=== PATIENT | male | born 1970 | race Caucasian/White ===

== ENCOUNTER 2018-08-10 17:01 | Emergency (ER) | payer OTHER ==
--- NOTE | 2018-08-10 17:08 | PDOC ---
History of Present Illness - General History Source: Patient Exam Limitations: No Limitations <[place] Fonseca - Last Filed: 08/10/18 17:51> <Yvan Haas - Last Filed: 08/10/18 18:21> - General Chief Complaint: Chest Pain Stated Complaint: CHEST PAIN Time Seen by Provider: 08/10/18 17:07 - History of Present Illness Initial Comments: 08/10/18 17:54 The patient is a 47 year old male, with a significant past medical history of right bundle branch (has not followed up with a corrosion control engineer in multiple years) , who presents to the emergency department with, chest discomfort. Patient notes 15 minutes prior to his arrival he experienced a sudden onset episode of shooting chest pain. Since that episode he has been experiencing chest tightness with associated shortness of breath, nausea, and numbness and tingling to his face and fingers, prompting his visit to the ER. While in the ER , the patient endorses feeling a similar episode of chest pain which was less severe in nature. He denies similar episodes in the past. He denies any recent fevers, chills, headache or dizziness. He denies any recent nausea, vomit, diarrhea or constipation. He denies any recent dysuria, frequency, urgency or hematuria. Allergies: NKDA Past surgical history: Meniscus tears. Social History: Nonsmoker. Denies EtOH use and recreational drug use. Familial History: Grandmother of [place] in her 60s. ([place] Fonseca) Past History <[place] Fonseca - Last Filed: 08/10/18 17:51> <Yvan Haas - Last Filed: 08/10/18 18:21> - Past Medical History Allergies/Adverse Reactions: Allergies Allergy/AdvReac Type Severity Reaction Status Date / Time No Known Allergies Allergy Verified 08/10/18 17:02 Home Medications: Ambulatory Orders NK [No Known Home Medication] 08/10/18 Review of Systems - Review of Systems Able to Perform ROS?: Yes All Other Systems: Reviewed and Negative <[place] Fonseca - Last Filed: 08/10/18 17:51> <Yvan Haas - Last Filed: 08/10/18 18:21> - Review of Systems Comments:: 08/10/18 17:55 CONSTITUTIONAL: Absent: fever, no chills, no fatigue EYES: Absent: visual changes ENT: Absent: ear pain, no sore throat CARDIOVASCULAR: Present: Chest pain/tightness, SOB RESPIRATORY: Absent: cough GI: Present: Nausea (resolved). Absent: abdominal pain, no vomiting, no constipation, no diarrhea GENITOURINARY: Absent: dysuria, no frequency, no hematuria MUSKULOSKELETAL: Absent: back pain, no arthralgia, no myalgia SKIN: Absent: rash NEURO: Present: Numbness and tingling to the fingers and face. Absent: headache ([place] Fonseca) *Physical Exam <[place] Fonseca - Last Filed: 08/10/18 17:51> <Yvan Haas - Last Filed: 08/10/18 18:21> - Vital Signs Last Vital Signs Temp Pulse Resp BP Pulse Ox 98 F 55 L 20 124/74 100 08/10/18 17:02 08/10/18 17:02 08/10/18 17:02 08/10/18 17:02 08/10/18 17:02 - Physical Exam Comments: 08/10/18 17:55 GENERAL: Well developed, well nourished. Awake and alert. No acute distress. HEENT: Normocephalic, atraumatic. PERRLA, EOMI. No conjunctival pallor. Sclera are non- icteric. Moist mucous membranes. Oropharynx is clear. NECK: Supple. Full ROM. No JVD. Carotid pulses 2+ and symmetric, without bruits. No thyromegaly. No lymphadenopathy. CARDIOVASCULAR: Regular rate and rhythm. No murmurs, rubs, or gallops. Distal pulses are 2+ and symmetric. PULMONARY: No evidence of respiratory distress. Lungs clear to auscultation bilaterally. No wheezing, rales or rhonchi. ABDOMINAL: Soft. Non-tender. Non-distended. No rebound or guarding. No organomegaly. Normoactive bowel sounds. MUSCULOSKELETAL Normal range of motion at all joints. No bony deformities or tenderness. No CVA tenderness. EXTREMITIES: No cyanosis. No clubbing. No edema. No calf tenderness. SKIN: Warm and dry. Normal capillary refill. No rashes. No jaundice. NEUROLOGICAL: Alert, awake, appropriate. Cranial nerves 2-12 intact. No deficits to light touch and temperature in face, upper extremities and lower extremities. No motor deficits in the in face, upper extremities and lower extremities. Normoreflexic in the upper and lower extremities. Normal speech. Toes are down- going bilaterally. Gait is normal without ataxia. +PSYCHIATRIC: Anxious. Cooperative. Good eye contact. ([place] Fonseca) ED Treatment Course - LABORATORY CBC & Chemistry Diagram: 08/10/18 17:35 08/10/18 17:35 <[place] Fonseca - Last Filed: 08/10/18 17:51> - LABORATORY CBC & Chemistry Diagram: 08/10/18 17:35 08/10/18 17:35 <Yvan Haas - Last Filed: 08/10/18 18:21> - ADDITIONAL ORDERS Additional order review: Laboratory Results 08/10/18 08/10/18 17:35 17:35 Sodium 132 L Potassium 3.6 Chloride 102 Carbon Dioxide 25 Anion Gap 5 L BUN 12 Creatinine 1.0 Creat Clearance w eGFR > 60 Random Glucose 142 H Calcium 8.6 Total Bilirubin 0.8 AST 26 ALT 21 Alkaline Phosphatase 58 Creatine Kinase 265 Troponin I < 0.03 Total Protein 6.3 L Albumin 4.1 08/10/18 17:35 RBC 4.38 MCV 90.2 MCHC 33.5 RDW 13.7 MPV 9.4 Neutrophils % 63.1 Lymphocytes % 27.3 Monocytes % 7.1 Eosinophils % 1.9 Basophils % 0.6 - Medications Given in the ED: ED Medications Discontinued Medications Generic Name Dose Route Start Last Admin Trade Name Freq PRN Reason Stop Dose Admin Aspirin 162 mg 08/10/18 17:47 08/10/18 17:58 Asa - PO 08/10/18 17:48 162 mg ONCE ONE Administration Medical Decision Making <[place] Fosneca - Last Filed: 08/10/18 17:51> <Yvan Haas - Last Filed: 08/10/18 18:21> - Medical Decision Making 08/10/18 17:42 Patient was sitting down to eat dinner this afternoon, experienced a sudden pain in the mid chest described as a "thump" which lasted several seconds. This was followed by a tightness, much less severe than the original pain. It was accompanied by numbness and tingling in the face, particularly perioral, as well as the fingers bilaterally. There was no diaphoresis. There was questionable brief nausea. The tightness extended into the neck. No vomiting. No abdominal pain. No diarrhea. The patient does not smoke or drink. He denies stress but he appears extremely anxious. He does not appear to have any risk factors for heart disease including family history, elevated cholesterol, diabetes, high blood pressure. He has had a right bundle branch block since age 22, diagnosed on routine EKG during physical, saw a corrosion control engineer initially but has had no cardiac problems and no follow-up recently. He is with and 2 children and 2 children. The patient's symptoms seem most consistent with a panic attack, anxiety, and/ or stress. EKG shows right bundle-branch block, typical ST-T wave changes associated with a right bundle, but no other significant findings. He is not tachycardic. There is no old EKG for comparison. Blood work including cardiac enzymes are pending. Aspirin administered prophylactically. 08/10/18 18:20 Cardiac enzymes are negative. Remainder of labs are without significant abnormalities. Discussed at length with the patient and his the symptoms of heart disease as well as those of anxiety, hyperventilation, and panic attacks. Encouraged to return to the ER if symptoms worsen. Otherwise relaxation techniques and stress reduction. Fully ambulatory, symptoms resolved, no distress at discharge with to follow-up as directed (Yvan Haas) *DC/Admit/Observation/Transfer <[place] Fonseca - Last Filed: 08/10/18 17:51> - Discharge Dispostion Decision to Admit order: No <Yvan Haas - Last Filed: 08/10/18 18:21> Diagnosis at time of Disposition: Atypical chest pain - Discharge Dispostion Disposition: HOME Condition at time of disposition: Improved - Patient Instructions Printed Discharge Instructions: DI for Hyperventilation, DI for Chest Pain Additional Instructions: Rest, relaxation techniques, recheck primary physician in 2-3 days. Return to ER if symptoms worsen or additional symptoms develop. - Attestations Scribe Attestion: 08/10/18 17:55 Documentation prepared by Mod[place] Fonseca, acting as medical receptionist for Kyree Maradiaga,Yvan Dexter MD. (Raymundo,[place])
[2018-08-10 17:24] VITALS: TEMP 98; BMI 27.2
[2018-08-10 17:45] LABS: BASO % 0.6 % (0-2.0); EOS % 1.9 % (0-4.5); HEMATOCRIT 39.5 % (35.4-49); HEMOGLOBIN 13.2 GM/dl (11.7-16.9); LYMPH % 27.3 % (8-40); MCH 30.2 pg (25.7-33.7); MCHC 33.5 g/dl (32.0-35.9); MEAN CELL VOLUME 90.2 fl (80-96); MEAN PLT VOLUME 9.4 fl (7.5-11.1); MONO % 7.1 % (3.8-10.2); NEUT % 63.1 % (42.8-82.8); PLATELET COUNT 171 K/MM3 (134-434); RBC 4.38 M/mm3 (4.00-5.60); RDW 13.7 % (11.9-15.9); WHITE BLOOD COUNT 7.2 K/mm3 (4.0-10.8)
[2018-08-10] MEDS ORDERED: ASPIRIN 81 MG CHEWABLE TABLETS PO ONE (17:47)
[2018-08-10 17:53] LABS: ALBUMIN 4.1 g/dl (3.5-5.0); ALK PHOS 58 U/L (32-92); ANION GAP 5 MMOL/L (8-16); BILIRUBIN,TOTAL 0.8 mg/dl (0.2-1.0); BLOOD UREA NITROGEN 12 mg/dl (7-18); CALCIUM 8.6 mg/dl (8.4-10.2); CHLORIDE 102 mmol/L (98-107); CO2 25 mmol/L (22-28); GLUCOSE,RANDOM 142 mg/dl (74-106); POTASSIUM 3.6 mmol/L (3.5-5.1); SGOT/AST 26 U/L (10-42); SGPT/ALT 21 U/L (10-40); SODIUM 132 mmol/L (136-145); TOT PROT 6.3 g/dl (6.4-8.3)
[2018-08-10] MEDS ORDERED: ASPIRIN 81 MG CHEWABLE TABLETS ONE (17:56)
[2018-08-10 18:37] VITALS: BP 132/74; PULSE 48
--- NOTE | 2018-08-11 09:49 | EKG ---
Test Reason : Blood Pressure : / mmHG Vent. Rate : 054 BPM Atrial Rate : 054 BPM P-R Int : 134 ms QRS Dur : 148 ms QT Int : 462 ms P-R-T Axes : 051 017 026 degrees QTc Int : 438 ms SINUS BRADYCARDIA RIGHT BUNDLE BRANCH BLOCK ABNORMAL ECG NO PREVIOUS ECGS AVAILABLE Confirmed by TILA MONIQUE MD ([id number]) on 08/11/2018 9:48:54 AM Referred By: DR VALDEZ Confirmed By:TILA MONIQUE MD
== END 2018-08-10 18:32 | disposition home or self-care (01) ==
LOC: FER 17:01
DX: R07.89 Other chest pain (principal); I45.10 Unspecified right bundle-branch block
CPT/HCPCS: 36415; 80053; 82550; 82553; 84484; 85025; 93005; 99284-25